=== PATIENT | female | born 1985 | race American Indian/Alaskan Native ===

== ENCOUNTER 2021-02-20 16:21 | Inpatient (IN) | payer OTHER ==
[2021-02-20] MEDS ORDERED: SODIUM CHLORIDE 0.9% 1000 ML IV SOLN IV ONE (20:24)
[2021-02-20] MEDS ORDERED: cefTRIAXone/NS 1 GM/50 ML 1 GM/50 ML BAG IV ONE (20:25)
[2021-02-20 21:01] LABS: Basophils # (Auto) 0.1 K/mm3 (0.0-0.1); Basophils % (Auto) 0.4 % (0.0-1.8); Eosinophils % (Auto) 0.1 % (0.0-4.3); Hemoglobin 13.4 gm/dl (10.1-14.3); Lymphocytes # (Auto) 1.7 K/mm3 (1.2-5.4); Lymphocytes % (Auto) 11.5 % (13.4-35.0); Mean Corpuscular HGB Conc 31 % (30-34); Mean Corpuscular Volume 88 fl (79-97); Monocytes # (Auto) 1.4 K/mm3 (0.0-0.8); Monocytes % (Auto) 9.3 % (0.0-7.3); Platelet Count 331 K/mm3 (140-440); Red Blood Count 4.88 M/mm3 (3.65-5.03); Red Cell Distribution Width 13.2 % (13.2-15.2)
[2021-02-20 21:11] LABS: INR 0.91 (0.87-1.13)
[2021-02-20 21:17] LABS: Alanine Aminotransferase 41 units/L (7-56); Albumin 4.4 g/dL (3.9-5); BUN/Creatinine Ratio 18; Blood Urea Nitrogen 16 mg/dL (7-17); Calcium 8.2 mg/dL (8.4-10.2); Hemolysis Index 10
[2021-02-20 21:26] LABS: Bacteria,Urine 1+ /HPF (Negative); Bilirubin,Urine NEG (Negative); Blood,Urine LG (Negative); Color,Urine Yellow (Yellow); Mucus,Urine FEW /HPF; RBC,Urine > 182.0 /HPF (0.0-6.0); Urobilinogen,Urine < 2.0 mg/dL (<2.0)
[2021-02-20 21:30] LABS: Chol/HDL Ratio 1.72 %; HDL Cholesterol 92 mg/dL (40-59); LDL Cholesterol,Direct 62 mg/dL (50-130)
--- NOTE | 2021-02-20 21:32 | Emergency Department Report ---
HPI - General Chief Complaint: Fever Time Seen by Provider: 02/20/21 21:16 - HPI HPI: 35-year-old female with history of seizure disorder and unknown baseline mental state brought in by EMS from her detention due to several seizures today, fever, and altered mental status. The patient does not remember what medications she takes for seizures. The patient states that today she began to feel sick, including malaise, lightheadedness and vomiting. She has no memory of the seizures. At this moment she says her only symptom is generalized weakness. She is vaccinated against COVID-19. She denies any associated headache, vision change, neck pain/stiffness, back pain, chest pain, cough, shortness of breath, abdominal pain, dysuria, focal weakness, sensory changes, or any other complaints. Further details of the HPI are limited due to the patient's current clinical condition. The patient is currently on her menstrual period. ED Past Medical Hx - Past Medical History Previous Medical History?: Yes Additional medical history: Seizure disorder ED Review of Systems ROS: Stated complaint: SIEZURE Other details as noted in HPI Comment: All other systems reviewed and negative Constitutional: chills, fever, malaise, weakness Eyes: denies: eye pain, vision change ENT: denies: throat pain, congestion Respiratory: denies: cough, shortness of breath Cardiovascular: denies: chest pain, palpitations, syncope Gastrointestinal: nausea, vomiting. denies: abdominal pain, diarrhea Genitourinary: denies: dysuria, frequency Musculoskeletal: denies: back pain, arthralgia Skin: denies: rash, lesions Neurological: denies: headache, weakness, numbness, paresthesias Physical Exam - Physical Exam Vital Signs: Vital Signs 02/20/21 02/20/21 02/20/21 16:24 20:02 20:15 Temperature 103 F H Pulse Rate 133 H Respiratory 18 Rate Blood Pressure 126/66 Blood Pressure 152/87 [Left] O2 Sat by Pulse 99 97 100 Oximetry 02/20/21 02/20/21 20:30 20:38 Temperature 99.0 F Pulse Rate Respiratory Rate Blood Pressure 118/62 Blood Pressure [Left] O2 Sat by Pulse 99 Oximetry Physical Exam: GENERAL: Well developed and well nourished. No acute distress HEAD: Normocephalic. No obvious signs of trauma. ENT: Very dry mucous membranes. EYES: Extraocular movements are intact. Pupils are equal round and reactive to light bilaterally NECK: Supple. Full ROM is intact. Trachea is midline. LUNGS: Nonlabored breathing. Equal chest rise bilaterally. Rales are heard at the left lung base and left mid lung. CARDIOVASCULAR: Tachycardic but with regular rhythm. No murmurs or rubs. VASCULAR: Cap refill < 2 seconds ABDOMEN: Abdomen is slightly distended but soft there is no significant tenderness, guarding or rebound. SKIN: Skin is warm and dry NEURO: Patient is awake, alert, and oriented but slow to respond to questioning. 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 No focal deficits. Normal motor and sensory exam throughout. Normal speech. MUSCULOSKELETAL: No obvious deformities. No significant tenderness. Normal ROM throughout. BACK/SPINE: No midline tenderness or step-offs of the C/T/L spine. No costo vertebral angle tenderness. ED Course Vital Signs 02/20/21 02/20/21 02/20/21 16:24 20:02 20:15 Temperature 103 F H Pulse Rate 133 H Respiratory 18 Rate Blood Pressure 126/66 Blood Pressure 152/87 [Left] O2 Sat by Pulse 99 97 100 Oximetry 02/20/21 02/20/21 20:30 20:38 Temperature 99.0 F Pulse Rate Respiratory Rate Blood Pressure 118/62 Blood Pressure [Left] O2 Sat by Pulse 99 Oximetry ED Medical Decision Making - Lab Data Result diagrams: 02/20/21 20:43 02/20/21 20:43 - EKG Data -: EKG Interpreted by Wy - EKG Data 02/20/21 22:57 Normal sinus rhythm. Normal axis. Normal intervals. No ectopy. No significant ST segment or T wave abnormalities. - Radiology Data Radiology results: report reviewed - Medical Decision Making 35-year-old female with seizure disorder on unknown medications brought in by EMS from her detention due to several seizures today, fever, vomiting, and altered mental status. The patient is slow to respond to questioning but is alert and oriented x4. She does not remember the name of her seizure medications. She reports malaise and generalized weakness as her symptoms and was vomiting earlier. On initial assessment she is febrile with a temp of 103.3. She is a heart rate of 133. She is satting 99% on room air with grossly normal blood pressure. Physical examination reveals very dry mucous membranes. She is slow to respond but has a nonfocal neurologic exam. She is tachycardic. Lung auscultation reveals left sided rales at the mid and base. There is no abdominal tenderness and no CVA tenderness. No meningismus. Full sepsis order set was initiated with labs/cultures and 30 mL/kg of IV fluid and IV ceftriaxone. EKG and chest x-ray have been ordered as well. CT of the head has been ordered to assess for evidence of intracranial bleeding, mass, or other abnormality to explain the patient's presentation given that we do not know her baseline mental status and she is slow to respond to questioning at this time and is unable to provide her medical history. Labs reveal leukocytosis of 14.8 with no anemia. Lactic acid is elevated at 2.4. Creatinine is within normal limits at 0.9. Troponin is mildly elevated at 0.041. Urinalysis reveals 16 WBCs with greater than 182 RBCs. The patient is currently on her menstrual period. I suspect that the patient's troponin elevation may be related to demand ischemia due to sepsis. I have added broad- spectrum vancomycin given her elevated lactic acid. We will continue to monitor the patient as she receives IV fluids Chest x-ray reveals no acute findings although there is incidental finding of mild inferior subluxation of the right humeral head. I went and discussed this finding with the patient and she states that she has some mild pain in her right shoulder but this has been chronic over the past few months. She has full range of motion the right shoulder and no tenderness. Although chest x-ray does not show evidence of pneumonia, I feel that the patient did in fact have rales on physical exam and therefore I have added CT of the chest/abdomen/pelvis to assess for evidence of pneumonia versus colitis versus appendicitis versus cholecystitis versus diverticulitis versus other intrathoracic or intra- abdominal abnormality to explain the patient's presentation. CT of the head reveals no acute abnormalities. CT of the chest/abdomen/pelvis reveals findings of bilateral pneumonia. I have therefore added on azithromycin to cover community-acquired pneumonia. Given her presentation with sepsis and altered mental status with increased seizures, elevated lactate, elevated troponin, and unknown baseline mental status, she will be admitted to medicine for further work-up/management. Repeat lactic acid after fluid resuscitation is within normal range. Repeat troponin is trending down. I spoke with Dr. Terry the on-call hospitalist regarding the case and he acc epts patient for admission and will assume care. Critical Care Time: Yes Critical care time in (mins) excluding proc time.: 35 Critical care attestation.: If time is entered above; I have spent that time in minutes in the direct care of this critically ill patient, excluding procedure time. Critical care time was spent in evaluation/assessment, work-up, and management of acute metabolic encephalopathy with sepsis and pneumonia requiring resuscitative fluids, broad-spectrum antibiotics, interpretation of chest x-ray and advanced imaging with frequent reevaluation reassessment. ED Disposition Clinical Impression: Seizure disorder, Sepsis, Seizures complicating infection, Bilateral pneumonia, UTI (urinary tract infection), Metabolic encephalopathy, Elevated troponin Disposition: 09 ADMITTED INPATIENT Is pt being admited?: Yes Condition: Serious
[2021-02-20] MEDS ORDERED: VANCOMYCIN 1,000 MG in SODIUM CHLORIDE 0.9% 500 ML 500 ML IV ONE (21:33)
[2021-02-20] MEDS ORDERED: VANCOMYCIN/NS 1 GM/250 ML 1 GM/250 ML BAG IV ONE (22:00)
--- NOTE | 2021-02-20 22:04 | XRay Report ---
CHEST 1 VIEW 02/20/2021 9:39 PM INDICATION / CLINICAL INFORMATION: AMS. Fever. COMPARISON: None available. FINDINGS: SUPPORT DEVICES: None. HEART / MEDIASTINUM: No significant abnormality. LUNGS / PLEURA: No significant pulmonary or pleural abnormality. No pneumothorax. ADDITIONAL FINDINGS: Incidental note of mild inferior subluxation of right humeral head with respect to the glenoid. IMPRESSION: 1. No acute pulmonary or pleural findings. 2. Mild inferior subluxation of right humeral head. Signer Name: Mynor Miller MD Signed: 02/20/2021 10:00 PM Workstation Name: [id number]
--- NOTE | 2021-02-20 22:29 | Cat Scan Report ---
CT HEAD WITHOUT CONTRAST INDICATION / CLINICAL INFORMATION: Altered Mental Status. TECHNIQUE: All CT scans at this location are performed using CT dose reduction for ALARA by means of automated exposure control. COMPARISON: None available. FINDINGS: HEMORRHAGE: None. EXTRA-AXIAL SPACES: Normal in size and morphology for the patient's age. VENTRICULAR SYSTEM: Normal in size and morphology for the patient's age. CEREBRAL PARENCHYMA: No significant abnormality. No acute territorial infarct. MIDLINE SHIFT / HERNIATION: None. CEREBELLUM / BRAINSTEM: No significant abnormality. ORBITS: Normal as visualized. SOFT TISSUES: No significant abnormality. SKULL: No significant abnormality. PARANASAL SINUSES / MASTOID AIR CELLS: Normal as visualized. ADDITIONAL FINDINGS: None. IMPRESSION: 1. No acute intracranial abnormality. Signer Name: Mynor Miller MD Signed: 02/20/2021 10:25 PM Workstation Name: [id number]
--- NOTE | 2021-02-21 | Cat Scan Report ---
CT CHEST, ABDOMEN, AND PELVIS WITH IV CONTRAST INDICATION: Sepsis. Left rales on physical exam. TECHNIQUE: Axial CT images were obtained through the chest, abdomen, and pelvis after 100 cc Omnipaque [address]. All CT scans at this location are performed using CT dose reduction for ALARA by means of aut omated exposure control. COMPARISON: One view of the chest performed earlier today. FINDINGS: HEART: No significant abnormality. THORACIC VASCULATURE: No acute findings. No significant atherosclerosis. LYMPH NODES: No significant adenopathy. TRACHEA AND BRONCHI:No significant abnormality. LUNGS: Ground glass/reticular nodular opacities are noted along the lower lobes, right greater than l eft, and to a lesser extent posteriorly along the right upper lobe. The lungs are otherwise clear. No significant pleural effusion. No pneumothorax. LIVER: No significant abnormality. GALLBLADDER/BILE DUCTS: No significant abnormality. PANCREAS: No significant abnormality. SPLEEN: No significant abnormality. ADRENALS: No significant abnormality. KIDNEYS/URETERS: There is nonspecific mild bilateral perinephric fat stranding without other signific ant abnormalities. STOMACH/SMALL BOWEL: No significant abnormality. COLON: No significant abnormality. APPENDIX: No significant abnormality. PERITONEUM: No free fluid. No free air. No fluid collection. LYMPH NODES: No significant adenopathy. ABDOMINOPELVIC VASCULATURE: No significant abnormality. URINARY BLADDER: No significant abnormality. REPRODUCTIVE ORGANS: Multiple masses are seen within the uterus that likely represent fibroids. An ex ophytic mass seen to the left of midline along the uterine fundus on image 127 of series 3 measures 3 .0 x 2.0 cm. No significant adnexal abnormality. ADDITIONAL FINDINGS: None. BONES: No significant abnormality IMPRESSION: 1. Bilateral pneumonia without other acute findings in the chest. 2. Nonspecific mild bilateral perinephric fat stranding could be secondary to renal insufficiency. Pl ease correlate with the clinical findings. 3. Additional findings as above. Signer Name: Lio Santo MD Signed: 02/20/2021 11:56 PM Workstation Name: [id number]
[2021-02-21] MEDS ORDERED: AZITHROMYCIN/NS 500 MG/250 ML 500 MG/250 ML BAG IV ONE (00:08)
[2021-02-21] MEDS ORDERED: ONDANSETRON 4 MG/2 ML INJ IV PRN (01:17)
[2021-02-21] MEDS ORDERED: MAGNESIUM HYDROXIDE (MOM) ORAL LIQD UDC PO PRN (01:17)
[2021-02-21] MEDS ORDERED: MORPHINE 2 MG/1 ML INJ IV PRN (01:17)
[2021-02-21] MEDS ORDERED: ACETAMINOPHEN 325 MG TAB PO PRN (01:17)
[2021-02-21] MEDS ORDERED: MORPHINE 4 MG/1 ML INJ IV PRN (01:17)
--- NOTE | 2021-02-21 01:36 | History and Physical Report ---
History of Present Illness Date of examination: 02/21/21 Date of admission: 02/21/2021 Chief complaint: Altered mental status Seizure disorder History of present illness: 35-year-old female with known history of seizure disorder brought into the emergency room via EMS today for changes in mental status from her halfway. Patient was said to have what appears to be seizure activity today. She has been feeling sick, having generalized malaise dizziness with nausea vomiting. She has also had generalized weakness. She denies any headache, no blurry vision, no chest pain or shortness of breath, no cough, no hematuria or dysuria, no abdominal pain and no diarrhea. Patient has been fully vaccinated against COVID-19. Upon arrival in the emergency room patient had a fever of 103 F, found to be tachycardic. Work-up in the emergency room today, CT of the chest shows bilateral pneumonia. There is also nonspecific mild bilateral perinephric fat stranding which could be secondary to renal insufficiency. CT of the head shows no acute findings. Labs significant for leukocytosis of 14.8, CO2 of 16, lactic acid of 2.4 and troponin of 0.041. Urinalysis shows small leukocyte esterase, 16 WBCs and 1+ bacteria. Past History Past Medical History: seizures Past Surgical History: No surgical history Social history: no significant social history Family history: no significant family history Medications and Allergies Allergies Allergy/AdvReac Type Severity Reaction Status Date / Time No Known Allergies Allergy Unverified 02/20/21 16:24 Active Meds: Active Medications Acetaminophen (Acetaminophen 325 Mg Tab) 650 mg PO Q4H PRN PRN Reason: Pain MILD(1-3)/Fever >100.5/FREED Heparin Sodium (Porcine) (Heparin 5,000 Unit/1 Ml Vial) 5,000 unit SUB-Q Q8HR ANDREA Sodium Chloride (Nacl 0.9% 1000 Ml) 1,000 mls @ 125 mls/hr IV DIRECT ANDREA Ceftriaxone Sodium (Rocephin/Ns 2 Gm/100 Ml) 2 gm in 100 mls @ 200 mls/hr IV Q24H ANDREA; Protocol Azithromycin (Zithromax/Ns) 500 mg in 250 mls @ 250 mls/hr IV Q24H ANDREA; Protocol Magnesium Hydroxide (Magnesium Hydroxide (Mom) Oral Liqd Udc) 30 ml PO Q4H PRN PRN Reason: Constipation Morphine Sulfate (Morphine 2 Mg/1 Ml Inj) 2 mg IV Q4H PRN PRN Reason: Pain, Moderate (4-6) Morphine Sulfate (Morphine 4 Mg/1 Ml Inj) 4 mg IV Q4H PRN PRN Reason: Pain , Severe (7-10) Ondansetron HCl (Ondansetron 4 Mg/2 Ml Inj) 4 mg IV Q8H PRN PRN Reason: Nausea And Vomiting Sodium Chloride (Sodium Chloride 0.9% 10 Ml Flush Syringe) 10 ml IV BID ANDREA Sodium Chloride (Sodium Chloride 0.9% 10 Ml Flush Syringe) 10 ml IV PRN PRN PRN Reason: LINE FLUSH Review of Systems Constitutional: no fever, no chills Ears, nose, mouth and throat: no nasal congestion, no sore throat Cardiovascular: no chest pain, no palpitations Respiratory: no cough, no shortness of breath Gastrointestinal: no abdominal pain, no nausea, no vomiting, no diarrhea Genitourinary Female: no flank pain, no dysuria, no hematuria Musculoskeletal: no neck pain, no low back pain Integumentary: no rash, no pruritis Neurological: no headaches, no confusion Psychiatric: no anxiety, no depression Endocrine: no polyphagia, no polydipsia, no polyuria, no nocturia Exam - Constitutional Vitals: Temp Pulse Resp BP Pulse Ox 99.0 F 133 H 18 123/67 99 02/20/21 20:38 02/20/21 16:24 02/20/21 16:24 02/20/21 22:00 02/20/21 22:00 General appearance: Present: no acute distress, well-nourished - EENT Eyes: Present: PERRL, EOM intact. Absent: scleral icterus ENT: hearing intact, clear oral mucosa, dentition normal - Neck Neck: Present: supple, normal ROM - Respiratory Respiratory effort: normal Respiratory: bilateral: diminished - Cardiovascular Rhythm: regular Heart Sounds: Present: S1 & S2. Absent: gallop, systolic murmur, diastolic murmur, rub, click - Extremities Extremities: no ischemia, pulses intact, pulses symmetrical, No edema, normal temperature, normal color, Full ROM Peripheral Pulses: within normal limits - Abdominal General gastrointestinal: Present: soft, non-tender, non-distended, normal bowel sounds. Absent: mass - Integumentary Integumentary: Present: clear, warm, dry. Absent: rash - Musculoskeletal Musculoskeletal: strength equal bilaterally - Psychiatric Psychiatric: appropriate mood/affect, intact judgment & insight, memory intact, cooperative - Neurologic Neurologic: CNII-XII intact, no focal deficits, moves all extremities HEART Score - HEART Score Troponin: Troponin T 0.041 ng/mL (0.00-0.029) H 02/20/21 20:43 Results - Labs CBC & Chem 7: 02/20/21 20:43 02/20/21 20:43 Labs: Abnormal lab results 02/20/21 02/20/21 02/20/21 Range/Units 20:43 20:43 20:43 WBC 14.8 H (4.5-11.0) K/mm3 Hct 43.0 H (30.3-42.9) % Lymph % (Auto) 11.5 L (13.4-35.0) % [place] % (Auto) 9.3 H (0.0-7.3) % [place] # (Auto) 1.4 H (0.0-0.8) K/mm3 Seg Neutrophils % 78.7 H (40.0-70.0) % Seg Neutrophils # 11.6 H (1.8-7.7) K/mm3 Carbon Dioxide 16 L (22-30) mmol/L Lactic Acid 2.40 H* (0.7-2.0) mmol/L Calcium 8.2 L (8.4-10.2) mg/dL AST 84 H (5-40) units/L Troponin T 0.041 H (0.00-0.029) ng/mL Total Protein 8.4 H (6.3-8.2) g/dL HDL Cholesterol 92 H (40-59) mg/dL Urine WBC (Auto) (0.0-6.0) /HPF 02/20/21 Range/Units 21:05 WBC (4.5-11.0) K/mm3 Hct (30.3-42.9) % Lymph % (Auto) (13.4-35.0) % [place] % (Auto) (0.0-7.3) % [place] # (Auto) (0.0-0.8) K/mm3 Seg Neutrophils % (40.0-70.0) % Seg Neutrophils # (1.8-7.7) K/mm3 Carbon Dioxide (22-30) mmol/L Lactic Acid (0.7-2.0) mmol/L Calcium (8.4-10.2) mg/dL AST (5-40) units/L Troponin T (0.00-0.029) ng/mL Total Protein (6.3-8.2) g/dL HDL Cholesterol (40-59) mg/dL Urine WBC (Auto) 16.0 H (0.0-6.0) /HPF Assessment and Plan - Patient Problems (1) Bilateral pneumonia Current Visit: Yes Status: Acute Plan to address problem: We will commence on empiric IV antibiotics. Will await culture results. (2) Metabolic encephalopathy Current Visit: Yes Status: Acute Plan to address problem: Possibly secondary to underlying pneumonia, metabolic acidosis. We will monitor mental status. (3) Seizure disorder Current Visit: Yes Status: Acute Plan to address problem: We will place on seizure precautions. We will continue routine home medications. (4) Sepsis Current Visit: Yes Status: Acute Plan to address problem: Present on admission. We will continue on empiric IV antibiotics and IV fluid. (5) UTI (urinary tract infection) Current Visit: Yes Status: Acute Plan to address problem: Continue on antibiotics Await urine culture results. (6) DVT prophylaxis Current Visit: Yes Status: Acute Plan to address problem: Patient placed on subcutaneous heparin (7) Full code status Current Visit: Yes Status: Acute Plan to address problem: Patient is full code.
[2021-02-21] MEDS ORDERED: AZITHROMYCIN/NS 500 MG/250 ML 500 MG/250 ML BAG IV SCH (02:00)
[2021-02-21] MEDS: HEPARIN 5,000 UNIT/1 ML VIAL SUB-Q SCH ×5 (06:19→21:32)
[2021-02-21] MEDS: SODIUM CHLORIDE 0.9% 1000 ML 1,000 ML IV SCH (09:46)
[2021-02-21] MEDS: cefTRIAXone/NS 2 GM/100 ML 2 GM/100 ML BAG IV SCH (09:47)
[2021-02-21] MEDS: AZITHROMYCIN 250 MG TAB PO SCH (09:47)
[2021-02-21 11:00] LABS: C-Reactive Protein 7.5 mg/dL (0.00-1.30)
--- NOTE | 2021-02-21 13:58 | Event Note ---
Date: 02/21/21 Patient seen and examined Admitted for pneumonia, will also rule out for COVID-19 Continue with empiric antibiotics Follow clinically
[2021-02-22] MEDS: SODIUM CHLORIDE 0.9% 1000 ML 1,000 ML IV SCH (03:37)
[2021-02-22] MEDS: HEPARIN 5,000 UNIT/1 ML VIAL SUB-Q SCH ×3 (05:12→21:09)
[2021-02-22 07:38] LABS: Basophils % (Auto) 0.3 % (0.0-1.8); Eosinophils # (Auto) 0.1 K/mm3 (0.0-0.4); Eosinophils % (Auto) 1.1 % (0.0-4.3); Hematocrit 36.7 % (30.3-42.9); Hemoglobin 11.8 gm/dl (10.1-14.3); Lymphocytes # (Auto) 1.8 K/mm3 (1.2-5.4); Lymphocytes % (Auto) 20.9 % (13.4-35.0); Mean Corpuscular HGB Conc 32 % (30-34); Mean Corpuscular Volume 86 fl (79-97); Monocytes # (Auto) 0.8 K/mm3 (0.0-0.8); Monocytes % (Auto) 9.2 % (0.0-7.3); Platelet Count 302 K/mm3 (140-440); Red Blood Count 4.27 M/mm3 (3.65-5.03); Red Cell Distribution Width 12.9 % (13.2-15.2)
[2021-02-22 07:51] LABS: Blood Urea Nitrogen 9 mg/dL (7-17); Calcium 7.5 mg/dL (8.4-10.2); Hemolysis Index 13
[2021-02-22 07:55] LABS: BUN/Creatinine Ratio 15
[2021-02-22] MEDS: cefTRIAXone/NS 2 GM/100 ML 2 GM/100 ML BAG IV SCH (09:03)
[2021-02-22] MEDS: AZITHROMYCIN 250 MG TAB PO SCH (09:04)
--- NOTE | 2021-02-22 11:24 | Discharge Summary ---
Providers - Providers Date of Admission: 02/21/21 00:41 Date of discharge: 02/22/21 Attending physician: PABLO LEUNG 02/21/21 01:17 Consult to Physician [CONS] Routine Comment: Consulting Provider: HEYDI SAXENA Physician Instructions: Reason For Exam: Seizure disorder Primary care physician: [employer] Hospitalization Condition: Serious Disposition: 01 HOME / SELF CARE / HOMELESS Final Discharge Diagnosis (Prints w/discharge instructions): (1) Bilateral pneumonia. (2) Metabolic encephalopathy. Possibly secondary to underlying pneumonia, metabolic acidosis. (3) Seizure disorder. (4) Sepsis due to PNA and UTI. (5) UTI (urinary tract infection) Time spent for discharge: 34 minutes Core Measure Documentation - Palliative Care Palliative Care/ Comfort Measures: Not Applicable - Core Measures Any of the following diagnoses?: none Exam - Constitutional Vitals: Temp Pulse Resp BP Pulse Ox 98.0 F 100 H 18 147/100 98 02/22/21 07:48 02/22/21 08:22 02/22/21 08:22 02/22/21 07:48 02/22/21 08:22 Plan Activity: advance as tolerated Weight Bearing Status: Weight Bear as Tolerated Diet: low fat Follow up with: REBEKA GANNON MD [Primary Care Provider] - 7 Days LEILA CARLIN MD [Staff Physician] - 7 Days Prescriptions: levoFLOXacin [Levaquin] 750 mg PO QDAY #5 tablet
--- NOTE | 2021-02-22 13:02 | Progress Note ---
Assessment and Plan -- Bilateral pneumonia Current Visit: Yes Status: Acute Plan to address problem: We will commence on empiric IV antibiotics. Will await culture results. Negative for Covid -- Metabolic encephalopathy Current Visit: Yes Status: Acute Plan to address problem: Possibly secondary to underlying pneumonia, metabolic acidosis. We will monitor mental status. -- Seizure disorder Current Visit: Yes Status: Acute Plan to address problem: We will place on seizure precautions. Patient currently not on any seizure medications at home Will await further medication list from the [facility] facility -- Sepsis Current Visit: Yes Status: Acute Plan to address problem: Present on admission. Due to underlying pneumonia We will continue on empiric IV antibiotics and IV fluid. -- UTI (urinary tract infection) Current Visit: Yes Status: Acute Plan to address problem: Continue on antibiotics Await urine culture results. -- DVT prophylaxis Current Visit: Yes Status: Acute Plan to address problem: Patient placed on subcutaneous heparin -- Full code status Current Visit: Yes Status: Acute Plan to address problem: Patient is full code. --Disposition: 02/22; Continue to follow clinically. Patient appears to be medically stable, Covid test is negative. But continue to complains of severe depression and anxiety. Discussed with case resource manager and unable to verify patient address. Ordered for psych consult, pending neuro recommendation Subjective Date of service: 02/22/21 Interval history: Patient seen and examined. Medical records and medication list reviewed. No acute event overnight noted by the RN. Patient c/o anxiety, COVID-19 test is negative Discussed plan of care at bedside with patient. Objective - Exam Narrative Exam: GENERAL: well-developed and well-nourished female lying on bed appeared to be in no discomfort. HEENT: Normocephalic. Atraumatic. No conjunctival congestion or icterus. Patient has moist mucous membranes. NECK: Supple. Trachea midline. CHEST/LUNGS: Clear to auscultated bilaterally, breathing nonlabored. No wheezes crackles or rhonchi. HEART/CARDIOVASCULAR: Regular in rate and rhythm. S1 and S2 positive. ABDOMEN: Abdomen is soft, nontender. Patient has normal bowel sounds. SKIN: There is no rash. Warm and dry. NEURO: No focal motor deficit. Follows command. MUSCULOSKELETAL: No joint effusion or tenderness. EXTRIMITY: No edema, no cyanosis or clubbing. PSYCH: Cooperative but appears very depressed and anxious. - Constitutional Vitals: Vital Signs - 12hr 02/22/21 02/22/21 02/22/21 03:56 07:48 08:22 Temperature 98.5 F 98.0 F Pulse Rate 95 H 87 Pulse Rate [ 100 H From Monitor] Respiratory 16 18 18 Rate Blood Pressure 142/83 147/100 O2 Sat by Pulse 98 100 98 Oximetry 02/22/21 02/22/21 08:25 11:33 Temperature 98.0 F Pulse Rate 81 96 H Pulse Rate [ From Monitor] Respiratory 16 Rate Blood Pressure 149/85 O2 Sat by Pulse 98 Oximetry - Labs CBC & Chem 7: 02/22/21 07:04 02/22/21 07:04 Labs: Abnormal lab results 02/22/21 02/22/21 Range/Units 07:04 07:04 RDW 12.9 L (13.2-15.2) % [place] % (Auto) 9.2 H (0.0-7.3) % Chloride 109.6 H (98-107) mmol/L Carbon Dioxide 21 L (22-30) mmol/L Glucose 105 H (65-100) mg/dL Calcium 7.5 L (8.4-10.2) mg/dL HEART Score - HEART Score Troponin: Troponin T 0.022 ng/mL (0.00-0.029) 02/21/21 01:36
[2021-02-22] MEDS ORDERED: ALPRAZolam 0.25 MG TAB PO PRN (14:00)
[2021-02-22] MEDS: levETIRAcetam 500 MG TAB PO SCH ×2 (16:32→21:08)
[2021-02-23] MEDS: HEPARIN 5,000 UNIT/1 ML VIAL SUB-Q SCH ×2 (05:16→23:14)
[2021-02-23] MEDS: levETIRAcetam 500 MG TAB PO SCH ×2 (12:34→23:14)
[2021-02-23] MEDS: AZITHROMYCIN 250 MG TAB PO SCH (12:34)
[2021-02-23] MEDS: cefTRIAXone/NS 2 GM/100 ML 2 GM/100 ML BAG IV SCH (12:35)
--- NOTE | 2021-02-23 12:58 | Progress Note ---
Assessment and Plan -- Bilateral pneumonia Current Visit: Yes Status: Acute Plan to address problem: We will commence on empiric IV antibiotics. Will await culture results. Negative for Covid -- Metabolic encephalopathy Current Visit: Yes Status: Acute Plan to address problem: Possibly secondary to underlying pneumonia, metabolic acidosis. We will monitor mental status. -- Seizure disorder Current Visit: Yes Status: Acute Plan to address problem: We will place on seizure precautions. Patient currently not on any seizure medications at home Will await further medication list from the [facility] facility -- Sepsis Current Visit: Yes Status: Acute Plan to address problem: Present on admission. Due to underlying pneumonia We will continue on empiric IV antibiotics and IV fluid. -- UTI (urinary tract infection) Current Visit: Yes Status: Acute Plan to address problem: Continue on antibiotics Await urine culture results. -- DVT prophylaxis Current Visit: Yes Status: Acute Plan to address problem: Patient placed on subcutaneous heparin -- Full code status Current Visit: Yes Status: Acute Plan to address problem: Patient is full code. --Disposition: 02/22; Continue to follow clinically. Patient appears to be medically stable, Covid test is negative. But continue to complains of severe depression and anxiety. Discussed with case planner and unable to verify patient address. Ordered for psych consult, pending neuro recommendation 02/23: manager [facility] unable to verify patient's address for discharge. Continue to follow clinically. Pending psych and neuro eval. Patient takes Risperdal 5 mg twice daily and BuSpar 10 mg twice daily -we will initiate and wait for psych recommendation. Subjective Date of service: 02/23/21 Interval history: Patient seen and examined. Medical records and medication list reviewed. No acute event overnight noted by the RN. Patient c/o anxiety, tolerating diet, complains of generalized weakness Discussed plan of care at bedside with patient. Objective - Exam Narrative Exam: GENERAL: well-developed and well-nourished female lying on bed appeared to be in no discomfort. HEENT: Normocephalic. Atraumatic. No conjunctival congestion or icterus. Patient has moist mucous membranes. NECK: Supple. Trachea midline. CHEST/LUNGS: Clear to auscultated bilaterally, breathing nonlabored. No wheezes crackles or rhonchi. HEART/CARDIOVASCULAR: Regular in rate and rhythm. S1 and S2 positive. ABDOMEN: Abdomen is soft, nontender. Patient has normal bowel sounds. SKIN: There is no rash. Warm and dry. NEURO: No focal motor deficit. Follows command. MUSCULOSKELETAL: No joint effusion or tenderness. EXTRIMITY: No edema, no cyanosis or clubbing. PSYCH: Cooperative but appears very depressed and anxious. - Constitutional Vitals: Vital Signs - 12hr 02/23/21 02/23/21 02/23/21 04:10 05:31 08:14 Temperature 98.2 F 99.8 F H Pulse Rate 90 87 87 Respiratory 18 18 16 Rate Blood Pressure 131/84 138/75 Blood Pressure 131/84 [Left] O2 Sat by Pulse 99 100 100 Oximetry 02/23/21 11:34 Temperature 98.1 F Pulse Rate 88 Respiratory 16 Rate Blood Pressure 132/76 Blood Pressure [Left] O2 Sat by Pulse 99 Oximetry - Labs CBC & Chem 7: 02/22/21 07:04 02/22/21 07:04 HEART Score - HEART Score Troponin: Troponin T 0.022 ng/mL (0.00-0.029) 02/21/21 01:36
[2021-02-23] MEDS: busPIRone 10 MG TAB PO SCH (23:13)
[2021-02-23] MEDS: risperiDONE 1 MG TAB PO SCH (23:13)
[2021-02-24 04:38] VITALS: BP 125/78
--- NOTE | 2021-02-24 10:32 | Electrocardiograph Report ---
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
--- NOTE | 2021-02-24 11:44 | Consultation ---
History of Present Illness - Reason for Consult Consult date: 02/24/21 Reason for consult: anxiety, depression - History of Present Psychiatric Illness The patient was seen today. She is a/o x 3. She is cooperative but appears anxious. The patient says she came [facility] the [facility] for seizures and pneumonia. She says she is depressed about the loss of both of her parents a year apart. The patient says "I feel anxious, unhappy, lonely and lost." She denies SI/HI. She says "I need therapy. I need someone to talk to on a regular basis." The patient says she sees outpatient psychiatry "on the computer on and off." She denies being on any psych meds "that she knows of, maybe anxiety meds." The patient says "I really don't want any antidepressants. They cause their fair share of problems too. I'm on enough meds." She says "I need a therapist not medications." She denies any illicit drug use, alcohol or nicotine. PAST PSYCHIATRIC HISTORY: Diagnoses: depression Suicide attempts or Self-harm behavior: Denies Prior psychiatric hospitalizations: Denies Substance Abuse history: Denies Previous psychiatric medications tried: Denies Outpatient treatment: Yes PAST MEDICAL HISTORY: unknown Family Psychiatric History: None reported or documented SOCIAL HISTORY Marital Status: Single Living Arrangements: shelter Employment Status: Retired Access to guns/weapons: Denies Education: History of Abuse: Denies Legal History: Denies REVIEW OF SYSTEMS Constitutional: Negative for weight loss ENT: Negative for stridor Respiratory: Negative for cough or hemoptysis All other systems reviewed and are negative MENTAL STATUS EXAMINATION General Appearance and Behavior: Age appropriate, good hygiene, wearing appropriate clothes. anxious, cooperative Cooperation: Cooperative Psychomotor Behavior: Psychomotor normal Mood: anxious, depressed Affect and affective range: congruent with stated mood Thought Process: Goal directed Thought Content: hopelessness Speech: Normal tone and pace Suicidal Ideation: Denies Homicidal Ideation: Denies Hallucinations: Denies Delusions: None elicited Impulse Control: Limited Insight and Judgment: Limited insight and good judgment Memory: Limited Attention: distracted Orientation: a/o x 3 Assessment (1) Major Depressive Disorder (2) Generalized Anxiety Disorder Treatment Plan Continue previously prescribed meds Sitter: per primary Medical: per primary Disposition: Do not recommend acute psychiatric inpatient treatment The change management director to give the patient resources for therapy Will sign off. Thanks Case staffed with Dr. Sheppard Medications and Allergies Allergies Allergy/AdvReac Type Severity Reaction Status Date / Time No Known Allergies Allergy Verified 02/24/21 11:07 Home Medications Medication Instructions Recorded Confirmed Last Taken Type levoFLOXacin [Levaquin] 750 mg PO QDAY #5 tablet 02/22/21 Unknown Rx busPIRone [Buspar] 10 mg PO BID #10 tablet 02/24/21 Unknown Rx risperiDONE [RisperDAL] 5 mg PO BID #10 tablet 02/24/21 Unknown Rx Active Meds: Active Medications Acetaminophen (Acetaminophen 325 Mg Tab) 650 mg PO Q4H PRN PRN Reason: Pain MILD(1-3)/Fever >100.5/FREED Alprazolam (Alprazolam 0.25 Mg Tab) 0.25 mg PO Q8H PRN PRN Reason: Anxiety Azithromycin (Azithromycin 250 Mg Tab) 500 mg PO QDAY [facility] Stop: 02/25/21 10:01 Last Admin: 02/23/21 12:34 Dose: 500 mg Documented by: Buspirone HCl (Buspirone 10 Mg Tab) 10 mg PO BID [facility] Last Admin: 02/23/21 23:13 Dose: 10 mg Documented by: Heparin Sodium (Porcine) (Heparin 5,000 Unit/1 Ml Vial) 5,000 unit SUB-Q Q8HR [facility] Last Admin: 02/23/21 23:14 Dose: Not Given Documented by: Sodium Chloride (Nacl 0.9% 1000 Ml) 1,000 mls @ 125 mls/hr IV DIRECT [facility] Last Admin: 02/22/21 03:37 Dose: 125 mls/hr Documented by: Ceftriaxone Sodium (Rocephin/Ns 2 Gm/100 Ml) 2 gm in 100 mls @ 200 mls/hr IV Q24HR [facility]; Protocol Stop: 02/25/21 10:29 Last Admin: 02/23/21 12:35 Dose: 200 mls/hr Documented by: Magnesium Hydroxide (Magnesium Hydroxide (Mom) Oral Liqd Udc) 30 ml PO Q4H PRN PRN Reason: Constipation Morphine Sulfate (Morphine 2 Mg/1 Ml Inj) 2 mg IV Q4H PRN PRN Reason: Pain, Moderate (4-6) Morphine Sulfate (Morphine 4 Mg/1 Ml Inj) 4 mg IV Q4H PRN PRN Reason: Pain , Severe (7-10) Ondansetron HCl (Ondansetron 4 Mg/2 Ml Inj) 4 mg IV Q8H PRN PRN Reason: Nausea And Vomiting Risperidone (Risperidone 1 Mg Tab) 5 mg PO BID [facility] Last Admin: 02/23/21 23:13 Dose: 5 mg Documented by: Sodium Chloride (Sodium Chloride 0.9% 10 Ml Flush Syringe) 10 ml IV BID [facility] Last Admin: 02/23/21 23:14 Dose: 10 ml Documented by: Sodium Chloride (Sodium Chloride 0.9% 10 Ml Flush Syringe) 10 ml IV PRN PRN PRN Reason: LINE FLUSH Mental Status Exam - Vital signs Last Vital Signs Temp 97.8 F 02/24/21 04:37 Pulse 98 H 02/24/21 04:37 Resp 18 02/24/21 04:37 BP 125/78 02/24/21 04:37 Pulse Ox 100 02/24/21 04:37 Results Result Diagrams: 02/22/21 07:04 02/22/21 07:04 All other labs normal.
[2021-02-24] MEDS: risperiDONE 1 MG TAB PO SCH ×2 (13:00→14:14)
--- NOTE | 2021-02-24 14:00 | Discharge Summary ---
Providers - Providers Date of Admission: 02/24/21 10:45 Date of discharge: 02/24/21 Attending physician: PABLO LEUNG 02/21/21 01:17 Consult to Physician [CONS] Routine Comment: Consulting Provider: HEYDI SAXENA Physician Instructions: Reason For Exam: Seizure disorder 02/22/21 13:24 Consult to Mental Health [CONS] Routine Reason For Exam: anxiety Primary care physician: LAUNDRY MARKER SUPERVISOR Hospitalization Condition: Serious Disposition: 01 HOME / SELF CARE / HOMELESS Final Discharge Diagnosis (Prints w/discharge instructions): -- Bacterial PNA. -- Major Depressive Disorder. -- Generalized Anxiety Disorder Time spent for discharge: 34 minutes Core Measure Documentation - Palliative Care Palliative Care/ Comfort Measures: Not Applicable - Core Measures Any of the following diagnoses?: none Exam - Constitutional Vitals: Temp Pulse Resp BP Pulse Ox 97.8 F 98 H 18 125/78 100 02/24/21 04:37 02/24/21 04:37 02/24/21 04:37 02/24/21 04:37 02/24/21 04:37 Plan Activity: advance as tolerated Weight Bearing Status: Weight Bear as Tolerated Diet: low fat, low salt Additional Instructions: Follow-up with neurology as outpatient Follow up with: PRIMARY MD JAGDEEP [Primary Care Provider] - 7 Days LEILA CARLIN MD [Staff Physician] - 7 Days Prescriptions: busPIRone [Buspar] 10 mg PO BID #10 tablet levoFLOXacin [Levaquin] 750 mg PO QDAY #5 tablet risperiDONE [RisperDAL] 5 mg PO BID #10 tablet
[2021-02-24] MEDS: cefTRIAXone/NS 2 GM/100 ML 2 GM/100 ML BAG IV SCH (14:13)
[2021-02-24] MEDS: busPIRone 10 MG TAB PO SCH (14:15)
[2021-02-24] MEDS: AZITHROMYCIN 250 MG TAB PO SCH (14:16)
--- NOTE | 2021-02-24 15:04 | XRay Report ---
CHEST 1 VIEW INDICATION / CLINICAL INFORMATION: PNA STUDY TIME: 1430 COMPARISON: 02/20/2021 FINDINGS: SUPPORT DEVICES: None HEART / MEDIASTINUM: No significant abnormality. LUNGS / PLEURA: No significant acute pulmonary or pleural abnormality. No pneumothorax. ADDITIONAL FINDINGS: No significant additional findings. IMPRESSION: No significant acute abnormality Signer Name: Neri Francis MD Signed: 02/24/2021 2:59 PM Workstation Name: [id number]
[2021-02-24] MEDS: HEPARIN 5,000 UNIT/1 ML VIAL SUB-Q SCH (15:06)
--- NOTE | 2021-02-24 15:38 | Consultation ---
History of Present Illness Consult date: 02/24/21 Reason for Consult: Seizure Chief complaint: Seizure History of present illness: 35 yo right-handed female with seizure disorder who presented initially with encephalopathy s/p a possible seizure event. Workup revealed a 103 degree Farenheit temperature, in the setting of bilatearl pneumonia. Patient notes that [facility] and notes that she lost both her parents within a year and she is an only child and is not close to anyone else in the family and notes that she needs help. She notes some generalized malaise and fatigue but otherwise notes no other issues. Notes a hx of seizure d/o as a child and then outgrowing it and then the return of the seizures (this year especially) which is near the time when her father . She cannot recall the name of the anti-epileptic she used to be on but notes it was being given at the [facility]. No further seizure-like activity since admision, in the setting of no AEDs being initiated. Past History Past Medical History: seizures Past Surgical History: No surgical history Social history: no significant social history Family history: no significant family history Medications and Allergies Allergies Allergy/AdvReac Type Severity Reaction Status Date / Time No Known Allergies Allergy Verified 02/24/21 11:07 Home Medications Medication Instructions Recorded Confirmed Last Taken Type levoFLOXacin [Levaquin] 750 mg PO QDAY #5 tablet 02/22/21 Unknown Rx busPIRone [Buspar] 10 mg PO BID #10 tablet 02/24/21 Unknown Rx risperiDONE [RisperDAL] 5 mg PO BID #10 tablet 02/24/21 Unknown Rx Active Meds: Active Medications Acetaminophen (Acetaminophen 325 Mg Tab) 650 mg PO Q4H PRN PRN Reason: Pain MILD(1-3)/Fever >100.5/FREED Alprazolam (Alprazolam 0.25 Mg Tab) 0.25 mg PO Q8H PRN PRN Reason: Anxiety Azithromycin (Azithromycin 250 Mg Tab) 500 mg PO QDAY [facility] Stop: 02/25/21 10:01 Last Admin: 02/24/21 14:16 Dose: 500 mg Documented by: Buspirone HCl (Buspirone 10 Mg Tab) 10 mg PO BID [facility] Last Admin: 02/24/21 14:15 Dose: 10 mg Documented by: Heparin Sodium (Porcine) (Heparin 5,000 Unit/1 Ml Vial) 5,000 unit SUB-Q Q8HR [facility] Last Admin: 02/24/21 15:06 Dose: 5,000 unit Documented by: Sodium Chloride (Nacl 0.9% 1000 Ml) 1,000 mls @ 125 mls/hr IV DIRECT [facility] Last Admin: 02/22/21 03:37 Dose: 125 mls/hr Documented by: Ceftriaxone Sodium (Rocephin/Ns 2 Gm/100 Ml) 2 gm in 100 mls @ 200 mls/hr IV Q24HR [facility]; Protocol Stop: 02/25/21 10:29 Last Admin: 02/24/21 14:13 Dose: Not Given Documented by: Magnesium Hydroxide (Magnesium Hydroxide (Mom) Oral Liqd Udc) 30 ml PO Q4H PRN PRN Reason: Constipation Morphine Sulfate (Morphine 2 Mg/1 Ml Inj) 2 mg IV Q4H PRN PRN Reason: Pain, Moderate (4-6) Morphine Sulfate (Morphine 4 Mg/1 Ml Inj) 4 mg IV Q4H PRN PRN Reason: Pain , Severe (7-10) Ondansetron HCl (Ondansetron 4 Mg/2 Ml Inj) 4 mg IV Q8H PRN PRN Reason: Nausea And Vomiting Risperidone (Risperidone 1 Mg Tab) 5 mg PO BID [facility] Last Admin: 02/24/21 13:00 Dose: Not Given Documented by: Sodium Chloride (Sodium Chloride 0.9% 10 Ml Flush Syringe) 10 ml IV BID [facility] Last Admin: 02/24/21 14:13 Dose: Not Given Documented by: Sodium Chloride (Sodium Chloride 0.9% 10 Ml Flush Syringe) 10 ml IV PRN PRN PRN Reason: LINE FLUSH Review of Systems All systems: negative (as per HPI;) Physical Examination - Vital Signs Vital Signs: Vital Signs Temp Pulse Resp BP Pulse Ox 103 F H 133 H 18 152/87 99 02/20/21 16:24 02/20/21 16:24 02/20/21 16:24 02/20/21 16:24 02/20/21 16:24 - Physical Exam Narrative exam: Gen: nad, well-nourished; Head: normocephalic; Eyes: no gaze deviation; no ptosis; ENT: normal vocalization; CVS: warm and well-perfused; Pulm: no respiratory distress; GI: appears non-distended; Ext: no cyanosis appreciated at distal extremities; Skin: no acute rash at distal extremities; Heme: no pathologic ecchymosis appreciated at distal extremities; Neuro: alert, oriented to name, age, month, year, surroundings, no dysarthria, no aphasia, CN 2 - PERRL, visual noonan grossly intact, CN 3, 4, 6 - EOMI, CN 5 - facial sensation symmetric to light touch, CN 7 - facial movement symmetric, CN 8 - hearing grossly intact, CN 9, 10 - uvula midline, CN 11 - shrug symmetric, CN 12 - tongue midline; Motor - at least 4+/5 at right extremities and at least 4/5 at left exts; Sensory - light touch symmetric, Cerebellar - fnf /hts intact, Gait - deferred secondary to seizure precautions; Results - Laboratory Findings CBC and BMP: 02/22/21 07:04 02/22/21 07:04 Abnormal Lab Findings: Abnormal Labs 02/20/21 02/20/21 02/20/21 20:43 20:43 20:43 WBC 14.8 H Hct 43.0 H RDW Lymph % (Auto) 11.5 L [place] % (Auto) 9.3 H [place] # (Auto) 1.4 H Seg Neutrophils % 78.7 H Seg Neutrophils # 11.6 H D-Dimer Chloride Carbon Dioxide 16 L Glucose Lactic Acid 2.40 H* Calcium 8.2 L AST 84 H Lactate Dehydrogenase Troponin T 0.041 H C-Reactive Protein Total Protein 8.4 H HDL Cholesterol 92 H Urine WBC (Auto) 02/20/21 02/21/21 02/21/21 21:05 10:05 10:05 WBC Hct RDW Lymph % (Auto) [place] % (Auto) [place] # (Auto) Seg Neutrophils % Seg Neutrophils # D-Dimer 317.65 H Chloride Carbon Dioxide Glucose Lactic Acid Calcium AST Lactate Dehydrogenase 764 H Troponin T C-Reactive Protein 7.50 H Total Protein HDL Cholesterol Urine WBC (Auto) 16.0 H 02/22/21 02/22/21 07:04 07:04 WBC Hct RDW 12.9 L Lymph % (Auto) [place] % (Auto) 9.2 H [place] # (Auto) Seg Neutrophils % Seg Neutrophils # D-Dimer Chloride 109.6 H Carbon Dioxide 21 L Glucose 105 H Lactic Acid Calcium 7.5 L AST Lactate Dehydrogenase Troponin T C-Reactive Protein Total Protein HDL Cholesterol Urine WBC (Auto) Assessment and Plan 35 yo right-handed female with seizure disorder who presented initially with encephalopathy s/p a possible seizure event in setting of underlying pneumonia. 1. Seizure d/o - resume home medical regimen of AED; maintain eunatremia/eumagnesemia; aggressive treatment of underliying infection; no driving, operation of heavy machinery, self-bath/climb/cook/swim, or supervisory role, until cleared by a neurologist; followup with Neurology in 6 weeks. 2. Stress-induced seizure - high risk for non-epileptic spells triggered by stress; diagnosis of exclusion. 3. No further acute neurologic intervention indicated at present. Neurology will signoff. Audie Green MD Neurology [id number]
== END 2021-02-24 21:06 | disposition home or self-care (01) | DRG 871 ==
LOC: ED 16:21 → 4A 02-21 00:41 → OBSVTOIN 02-24 10:45
PROVIDERS: ADMIT Internal Medicine Geriatric Medicine; ATTEND Internal Medicine
DX: A41.9 Sepsis, unspecified organism (principal); G93.41 Metabolic encephalopathy; J18.9 Pneumonia, unspecified organism; N39.0 Urinary tract infection, site not specified; G40.909 Epilepsy, unspecified, not intractable, without status epilepticus; Z20.822 Contact with and (suspected) exposure to COVID-19; F41.1 Generalized anxiety disorder; F32.A Depression, unspecified
CPT/HCPCS: 36415; 70450; 71045; 71260; 74177; 80048; 80053; 80061; 81001; 82140; 82728; 82947; 83615; 84145; 84484; 84703; 85025; 85379; 85610; 86140; 87086; 93005; 99285; G0378; Q0162; J0456; J0696; J1644; J7030; Q9967; U0003